=== PATIENT | female | born 1975 | race Caucasian/White ===

== ENCOUNTER 2019-08-13 14:11 | Outpatient (CLI) | payer OTHER ==
[2019-08-13] MEDS ORDERED: NORE1TAB11 PO (14:38)
== END 2019-08-13 23:59 | disposition home or self-care (01) ==
LOC: STAR 14:11
PROVIDERS: ATTEND Obstetrics & Gynecology Female Pelvic Medicine and Reconstructive Surgery
DX: Z02.9 Encounter for administrative examinations, unspecified (principal)

== ENCOUNTER 2019-09-03 08:40 | Day surgery (SDC) | payer OTHER ==
[~2019-09-03] VITALS: Ht 170.2 cm; Wt 53.4 kg
[~2019-09-03 08:40] MED LIST: NORE1TAB11 PO
[2019-09-03] MEDS ORDERED: LACTATED RINGERS 1,000 ML IV SCH ×2 (09:03→12:41)
[2019-09-03 09:06] VITALS: BP 104/69
[2019-09-03] MEDS ORDERED: BUPIVACAINE/PF 0.25% ONE (09:06)
[2019-09-03] MEDS ORDERED: INDIGO CARMINE 0.8%, 5ML ONE (09:06)
[2019-09-03] MEDS ORDERED: MIDAZOLAM 1 MG/ML, 2ML ONE (09:16)
[2019-09-03] MEDS ORDERED: FENTANYL PF 250 MCG/5ML ONE (09:16)
[2019-09-03 09:24] LABS: HCG UR SG 1.026 (1.003-1.030)
[2019-09-03] MEDS ORDERED: hydrALAzine 20 MG/ML, 1ML IV PRN (09:30)
[2019-09-03] MEDS ORDERED: FENTANYL PF 100 MCG/2ML IV PRN (09:30)
[2019-09-03] MEDS ORDERED: ONDANSETRON 2MG/ML, 2ML IV PRN (09:30)
[2019-09-03] MEDS ORDERED: PROMETHAZINE 25 MG/ML, 1ML IV PRN (09:30)
[2019-09-03] MEDS ORDERED: LABETALOL 5MG/ML, 20ML IV PRN (09:30)
[2019-09-03] MEDS ORDERED: MEPERIDINE/PF 25MG/ML,1ML IVPush PRN (09:30)
[2019-09-03] MEDS ORDERED: GABAPENTIN 300 MG CAPSULE PO ONE (10:00)
[2019-09-03] MEDS ORDERED: FAMOTIDINE 20 MG/2 ML IVPush ONE (10:00)
[2019-09-03] MEDS ORDERED: ACETAMINOPHEN 500 MG TABLET PO ONE (10:00)
[2019-09-03] MEDS ORDERED: OxyconTIN ER 10 MG TAB.ER PO ONE (10:00)
[2019-09-03] MEDS ORDERED: ACETAMINOPHEN 500 MG TABLET ONE (10:01)
[2019-09-03] MEDS ORDERED: FAMOTIDINE 20 MG TABLET ONE (10:02)
[2019-09-03] MEDS ORDERED: GABAPENTIN 300 MG CAPSULE ONE (10:03)
[2019-09-03] MEDS ORDERED: DEXAMETHASONE 4 MG/ML, 1ML ONE (10:32)
[2019-09-03] MEDS ORDERED: CEFAZOLIN 1,000 MG ONE (10:33)
[2019-09-03] MEDS ORDERED: EPINEPHRINE 1 MG/ML, 1ML INFIL ONE (11:02)
[2019-09-03] MEDS ORDERED: ROCURONIUM 10MG/ML,5ML ONE (11:58)
[2019-09-03] MEDS ORDERED: PROPOFOL 10 MG/ML, 20ML ONE (11:58)
[2019-09-03] MEDS ORDERED: ONDANSETRON 2MG/ML, 2ML ONE (11:58)
[2019-09-03] MEDS ORDERED: NEOSTIGMINE 1 MG/ML, 10ML ONE (12:14)
[2019-09-03] MEDS ORDERED: GLYCOPYRROLATE 0.2MG/1ML, 5ML ONE (12:14)
[2019-09-03] MEDS ORDERED: SILVER NITRATE STICK TP ONE (12:21)
[2019-09-03] MEDS ORDERED: IBUPROFEN 600 MG TABLET PO PRN (13:00)
[2019-09-03] MEDS ORDERED: ONDANSETRON 2MG/ML, 2ML IVPush PRN (13:00)
[2019-09-03] MEDS ORDERED: PROMETHAZINE 25 MG SUPP PR ONE (13:00)
[2019-09-03] MEDS ORDERED: HYDROcodone/APAP 5/325 TABLET PO PRN (13:00)
[2019-09-03] MEDS ORDERED: HYDROmorphone 1 MG/ML, 1ML INJ ONE (13:14)
[2019-09-03] MEDS: HYDROmorphone 2 MG/ML, 1ML IVPush PRN ×2 (13:16→13:24)
== END 2019-09-03 18:45 | disposition home or self-care (01) ==
LOC: OUT 08:40
PROVIDERS: ATTEND Obstetrics & Gynecology Female Pelvic Medicine and Reconstructive Surgery
DX: D25.9 Leiomyoma of uterus, unspecified (principal); N80.0 Endometriosis of uterus; N72 Inflammatory disease of cervix uteri; N88.8 Other specified noninflammatory disorders of cervix uteri; N73.6 Female pelvic peritoneal adhesions (postinfective); G43.909 Migraine, unspecified, not intractable, without status migrainosus; F17.210 Nicotine dependence, cigarettes, uncomplicated; Z79.899 Other long term (current) drug therapy; Z90.79 Acquired absence of other genital organ(s); Z90.721 Acquired absence of ovaries, unilateral
CPT/HCPCS: 49322; 58554; 81025; 88307; J0171; J0690; J1100; J1170; J2250; J2405; J2704; J2710; J3010; J3490; J7120; S2900

== ENCOUNTER → 2020-02-21 | Outpatient (CLI) | payer OTHER | END | disposition home or self-care (01) | LOC: CFH 14:27 | PROVIDERS: ATTEND Obstetrics & Gynecology Female Pelvic Medicine and Reconstructive Surgery | DX: R92.2 Inconclusive mammogram (principal) | CPT/HCPCS: 76641 ==

== ENCOUNTER → 2020-12-09 | Outpatient (CLI) | payer OTHER | END | disposition home or self-care (01) | LOC: CFH 10:53 | PROVIDERS: ATTEND Obstetrics & Gynecology Female Pelvic Medicine and Reconstructive Surgery | DX: Z12.31 Encounter for screening mammogram for malignant neoplasm of breast (principal) | CPT/HCPCS: 77063; 77067 ==